=== PATIENT | male | born 1970 | race Caucasian/White ===

== ENCOUNTER 2020-12-28 08:05 | Emergency (ER) | payer OTHER ==
[~2020-12-28] VITALS: Ht 172.7 cm; Wt 75.8 kg
[2020-12-28 09:02] LABS: ABSOLUTE NEUTROPHILS 8.2 thou/uL (1.4-8.2)
[2020-12-28 09:04] LABS: BASOPHILS 0.6 % (0.0-2.0); EOSINOPHILS 0.3 % (0.0-3.0); HEMATOCRIT 45.8 % (42.0-52.0); HEMOGLOBIN 15.6 gm/dL (14.0-18.0); LYMPHOCYTES 11.8 % (24.0-44.0); MCH 31.9 pg (26.0-34.0); MCHC 34.2 g/dL (28.0-37.0); MCV 93.5 fL (80.0-100.0); MONOCYTES 2.7 % (1.0-8.0); PLATELET COUNT 303 thou/uL (150-400); POLYS 84.6 % (36.0-66.0); RDW 13.1 % (10.5-14.5); WBC 9.8 thou/uL (4.0-11.0)
[2020-12-28 09:13] LABS: POTASSIUM 3.5 mmol/L (3.5-5.1)
[2020-12-28 09:19] LABS: ALBUMIN 4.4 g/dL (3.4-5.0); TOTAL BILIRUBIN 0.9 mg/dL (0.2-1.0); TOTAL PROTEIN 7.7 g/dL (6.4-8.2)
[2020-12-28 10:43] VITALS: BP 162/97
--- NOTE | 2020-12-29 07:37 | EKG ---
[address] [address] ELECTROCARDIOGRAM REPORT Name: JAMIE EVERETT Room #: DEP [facility]ina[facility] [id number] Admission: 12/28/20 Attend Phys: Discharge: 12/28/20 Date of : 68 Report #: [id number] [facility] ED Test Date: 2020-12-28 Test Time: 08:39:58 Pat Name: JAMIE EVERETT Department: Room: Gender: M Equip Maint Eng: [place] : 1970 Requested By: Ja Barnes Order Number: [id number] MD: Fred Dwyer Measurements Intervals [place] Rate: 66 P: [place]: QRS: 7 QRSD: 112 T: 27 QT: 408 QTc: 428 Interpretive Statements Atrial fibrillation Borderline intraventricular conduction delay No previous ECG available for comparison Electronically Signed On 12-29-2020 7:37:47 CDT by Fred Dwyer [email or web address] <ELECTRONICALLY SIGNED> By: Fred Dwyer MD, [facility] 12/29/20 0737 [id number] Fred Dwyer MD, FACC /EPI
== END 2020-12-28 10:43 | disposition home or self-care (01) ==
LOC: ER 08:05
PROVIDERS: Emergency Medicine
DX: F10.239 Alcohol dependence with withdrawal, unspecified (principal); F10.229 Alcohol dependence with intoxication, unspecified

== ENCOUNTER 2021-01-31 13:17 | Inpatient (IN) | payer BC, OTHER ==
[~2021-01-31] VITALS: Ht 177.8 cm; Wt 79.4 kg
[2021-01-31 13:37] VITALS: BP 139/97
[2021-01-31 13:59] LABS: HEMATOCRIT 42.8 % (42.0-52.0); HEMOGLOBIN 14.9 gm/dL (14.0-18.0); MCH 31.8 pg (26.0-34.0); MCHC 34.8 g/dL (28.0-37.0); MCV 91.5 fL (80.0-100.0); RBC 4.68 mil/uL (4.50-6.00); RDW 12.7 % (10.5-14.5); WBC 9.1 thou/uL (4.0-11.0)
[2021-01-31 14:09] LABS: CALCIUM 8.9 mg/dL (8.5-10.1)
[2021-01-31 14:15] LABS: ALBUMIN 4.2 g/dL (3.4-5.0); TOTAL BILIRUBIN 0.5 mg/dL (0.2-1.0); TOTAL PROTEIN 7.3 g/dL (6.4-8.2)
[2021-01-31 16:18] VITALS: BP 146/100
[2021-01-31 17:08] VITALS: BP 145/98
--- NOTE | 2021-01-31 19:54 | NUR ---
ASSUMED CARE OF PT FROM ER AT 1740 THIS AFTERNOON. PT HAD ROLLING ACCIDENT AND SUSTAINED RIB FXS, 5% PNEUMO, LAC ACROSS TOP OF HEAD WITH 3 ANNIKA, ABRASION ON RT SHOULDER. ASSESSMENTS NOTED IN CHART AND OTHERWISE UNREMARKABLE. DR. NAVARRO HAS NOT PLACED ORDERS FOR PT OF YET. CALL LIGHT AND OTHER NEEDS ARE IN PLACE. PT IS USING URINAL AND ONCOMING NURSE WILL ATTEMPT TO GET ORDERS. IV IN RT AC WITH SL. WILL MONITOR AN NOTE ANY CHANGES.
[2021-01-31 20:24] VITALS: BP 134/95
[2021-02-01 01:35] VITALS: BP 159/108
--- NOTE | 2021-02-01 02:48 | NUR ---
PT CARE ASSUMED WITH PT IN BED WITH FIANCE AT BEDSIDE OF THE BED.PT IS A/O X4.PT IN PAIN AND AGITATED BECAUSE OF PAIN.DR NAVARRO PAGENikita AND ORDERS TAKEN.PT PAIN MANAGED WITH NORCO AND MORPHINE WITH PARTIAL RELIEF.PT C/O MUSCLE SPASM AND FLEXERIL ORDERED.PT UNABLE TO SIT UP WITHOUT HELP.FALL PRECAUTION IN PLACE.ADMISSION SYSTEM ASSESSMENT DONE AND SEPSIS DONE.PT ON TELE NSR.WILL CONTINUE TO MONITOR
[2021-02-01 07:39] VITALS: BP 125/90
[2021-02-01 15:36] VITALS: BP 132/94
[2021-02-01 19:48] VITALS: BP 129/97
--- NOTE | 2021-02-01 20:08 | NUR ---
Assumed pt care this am, vs stable. Pain is manged with medications, partial relief is noted. POC followed with no signs or verbalizations of distress. Endorsed to the night nurse.
--- NOTE | 2021-02-02 03:04 | NUR ---
PT CARE ASSUMED WITH VISITOR AT BEDSIDE AT SHIFT CHANGE.PT IS A/O X4.PT IS AUP WITH X1 ASSIST.PT C/O PAIN AND MUSCLE SPASM.NORCO AND MORPHINE PRN GIVEN WITH PARTIAL RELIEF OF PAIN AND FLEXERIL FOR SPASM.IV ACCCESS ON RT AC SL.PT IS ON ROOM AIR.WILL CONTINUE TO MONITOR PER POC
[2021-02-02 08:00] VITALS: BP 143/101
[2021-02-02 09:20] LABS: HEMOGLOBIN 15.2 gm/dL (14.0-18.0); MCH 30.7 pg (26.0-34.0); MCHC 33.1 g/dL (28.0-37.0); MCV 92.8 fL (80.0-100.0); RBC 4.96 mil/uL (4.50-6.00); WBC 10.5 thou/uL (4.0-11.0)
[2021-02-02 09:36] LABS: ALBUMIN 3.8 g/dL (3.4-5.0); CALCIUM 8.7 mg/dL (8.5-10.1); CREATININE 0.7 mg/dL (0.7-1.3); PHOSPHORUS 3.3 mg/dL (2.6-4.7)
[2021-02-02 09:37] LABS: POTASSIUM 5.3 mmol/L (3.5-5.1)
--- NOTE | 2021-02-02 10:07 | NUR ---
PATIENT A&OX4. COMPLAINS OF PAIN. PRN MEDICATION GIVEN. PATIENT OBSERVED COUGHING WITH NON-PRODUCTIVE COUGH. WILL HAVE ROOFER ASSISTANT NOTIFY PHYSICIAN. INCENTIVE SPIROMETER GIVEN. ENCOURAGED PATIENT TO DEEP BREATHE HOURLY. ROOFER ASSISTANT PROVIDING DIRECT CARE TO PATIENT.
--- NOTE | 2021-02-02 13:38 | NUR ---
PT ADMITTED RELATED TO MULTIPAL RIB FRACTURES, LEFT PNEUMO, HEAD LACERATION. CM REVIEWED CHART AND SPOKE WITH CARE TEAM. CM MET WITH PT AT BEDSIDE THIS DAY. PT APPEARED TO BE A&O X4. CM ROLE INTRODUCED. PT INDICATED HE RESIDES GELY HOUSE ALONE WITH 2 STEPS TO ENTER AND NO STEPS INSIDE. 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 PT INDICATED [facility] GOES TO [facility] [place] [facility]IMARY CARE. PT INDICATED HE PLANS TO RETURN HOME [place] MEDICALLY STABLE. PT IS TO HAVE REPEAT CHEST XRAY TOMORROW PER TRAUMA TEAM. CM FOLLOWING REGARDING DC PLANNING.
[2021-02-02 15:51] VITALS: BP 130/99
--- NOTE | 2021-02-02 16:46 | NUR ---
ASSUMED PATIENT AT SHIFT CHANGE; ASSESSMENT CHARTED. MEDS ADMINISTERED PER MAR. PATIENT A&OX4 AND VOICED PAIN 10/10 PARTIALLY RELIVED BY PRN NORCO & MORPHINE. REPEAT XRAY COMPLETE; SEE NOTES. IR GIVEN FOR ATELECTASIS & PNEUMOTHRAX/EFFUSION. PATIENT REMINDED TO USE EACH TIME WE ROUND ON HIM. NEW PAIN MEDS ORDERED AND APPEARING TO BE WORKING BETTER. APPETITE FAIR. NO BM YET; STOOL SOFTENER GIVEN EARLY PER REQUEST. IVF INFUSING ON R FA NO ISSUES. PATIENT VOICING NO FURTHER NEEDS. WILL CONTINUE TO MONITOR AND FOLLOW PLAN OF CARE
[2021-02-02 19:58] VITALS: BP 118/80
--- NOTE | 2021-02-03 03:21 | NUR ---
ASSUMED CARE OF PT AT SHIFT CHANGE. PT IS AOX4 AND LETS NEEDS BE KNOWN. PT IS UP AD BO. PT REPORTED SOME RIB PAIN; PRNS PROVIDED. IVF CONTINUED. PT WAS ABLE TO GET COMFORTABLE AND SLEEP PART OF THE SHIFT. VSS AND NO S/S OF ACUTE DISTRESS. WILL CONTINUE TO MONIOTR.
[2021-02-03 11:55] LABS: HEMATOCRIT 40.5 % (42.0-52.0); HEMOGLOBIN 13.4 gm/dL (14.0-18.0); MCH 30.4 pg (26.0-34.0); MCHC 33.1 g/dL (28.0-37.0); MCV 91.6 fL (80.0-100.0); RBC 4.42 mil/uL (4.50-6.00); RDW 12.8 % (10.5-14.5); WBC 6.1 thou/uL (4.0-11.0)
[2021-02-03 12:08] LABS: ALBUMIN 3.4 g/dL (3.4-5.0); CALCIUM 8.6 mg/dL (8.5-10.1); PHOSPHORUS 3.5 mg/dL (2.6-4.7); POTASSIUM 4.1 mmol/L (3.5-5.1)
[2021-02-03] MEDS ORDERED: IBUPROFEN 200200 M1 PO (15:30)
[2021-02-03] MEDS ORDERED: TYLENOL325 MG PO (15:30)
[2021-02-03] MEDS ORDERED: MIRALAX17 GM PO (15:30)
[2021-02-03] MEDS ORDERED: OXYCODONE HCL10 MG PO (15:30)
[2021-02-03] MEDS ORDERED: STIMULANT LAXA1 EACH PO (15:31)
[2021-02-03 15:45] VITALS: BP 118/80
--- NOTE | 2021-02-03 15:53 | NUR ---
CARE TEAM INDICATED THAT PT IS MEDICALLY STABLE TO DC HOME THIS DAY. PT IS TO DC HOME TO [facility] THIS DAY. PT HAS TRANSPORT AVAIABLE TO TAKE HIM HOME THIS DAY. NO OTHER CM INTERVENTION INDICATED. CASE CLOSED.
--- NOTE | 2021-02-03 16:12 | NUR ---
ASSUMED PATIENT CARE AGAIN THIS AM AT SHIFT CHANGE. ASSESSMENT CHARTED. MEDS ADMINISTERED PER EMAR. VITAL REMAIN STABLE; APPETITE ADEQUATE, PAIN MORE CONTROLLED. PATIENT HAD A REPEAT CXR & LABS DRAWN ALL WNL & SHOWING IMPROVEMENT. PATIENT MEDICALLY STABLE. ORTHOPEDIC PROVIDERS AGREED TO DISCHARGE PATIENT. IVF & IV D/C'D, PROVIDED PRINTTED DISCHARGE INSTRUCTIONS AND EDUCATION. PRESCRIPTIONS SENT TO PHARMACY. PATIENT WILL BE PICKED UP BY GIRLFRIEND AT 1645 PER PATIENT. VOICED NO FURTHER NEEDS
== END 2021-02-03 17:25 | disposition home or self-care (01) | DRG 184 ==
LOC: ER 13:17 → 4W 16:07 → EROBS 16:07 → 4W 17:27
PROVIDERS: Nurse Practitioner Family; Surgery; ADMIT Surgery; ATTEND Surgery
PROC: 0HQ0XZZ Repair Scalp Skin, External Approach (ICD-10-PCS; principal; 2021-01-31)
DX: S22.42XA Multiple fractures of ribs, left side, initial encounter for closed fracture (principal); J93.9 Pneumothorax, unspecified; F10.11 Alcohol abuse, in remission; S01.01XA Laceration without foreign body of scalp, initial encounter; W05.1XXA Fall from non-moving nonmotorized scooter, initial encounter; Y93.89 Activity, other specified; Y92.89 Other specified places as the place of occurrence of the external cause; Y99.8 Other external cause status; Z23 Encounter for immunization
CPT/HCPCS: 10045